=== PATIENT | female | born 1960 | race Caucasian/White ===

== ENCOUNTER 2019-05-12 06:46 | Day surgery (SDC) | payer BC ==
[2019-05-12] MEDS ORDERED: Lactated Ringers 1,000 ML IV ONE (07:16)
[2019-05-12] MEDS ORDERED: Lactated Ringers 1,000 ML IV SCH (07:30)
--- NOTE | 2019-05-12 08:13 | HP ---
DATE OF SURGERY: 05/12/2019 ANTICIPATED PROCEDURE: Colonoscopy. HISTORY OF PRESENT ILLNESS: The patient presents for five year follow up, past history of polyps. PAST MEDICAL HISTORY: ALLERGIES: NONE. MEDICATIONS: See list. PAST SURGICAL HISTORY: Hysterectomy. SOCIAL HISTORY: Negative. FAMILY HISTORY: Negative. REVIEW OF SYSTEMS: Negative. PHYSICAL EXAMINATION: VITAL SIGNS: Normal. CHEST: Clear. COR: Regular. ABDOMEN: Satisfactory. IMPRESSION: History of polyps. PLAN: Five year follow up.
[2019-05-12] MEDS ORDERED: DIPRIVAN 200 MG/20 ML IV ONE ×2 (08:17→09:08)
[2019-05-12] MEDS ORDERED: Ketamine HCl 50 MG/ML ONE (08:17)
[2019-05-12 10:06] VITALS: O2SAT 98
--- NOTE | 2019-05-12 10:16 | OP ---
SURGERY DATE/TIME: 05/12/2019 0857 PREOPERATIVE DIAGNOSIS: History of polyps. POSTOPERATIVE DIAGNOSIS: One polyp. PROCEDURES: 1) Colonoscopy complete to cecum. 2) Hot polypectomy x1 distal descending. SURGEON: Adam Escamilla M.D. ANESTHESIA: MAC. COMPLICATIONS: None. CONDITION: Stable. INDICATION: A patient requiring evaluation. DESCRIPTION OF PROCEDURE: Taken to endoscopy. MAC sedation provided. Anal digital examination. Scope introduced. Scope advanced to the cecum. Base of cecum satisfactory. Ileocecal valve satisfactory. Ascending, hepatic, transverse, splenic, descending, distal descending 6 mm polyp taken with hot biopsy forceps to extinction. [employer] sample submitted. Sigmoid, rectum, anus satisfactory. Findings one polyp. Follow up three years.
[2019-05-12 10:26] VITALS: BP 121/76; PULSE 75
== END 2019-05-12 10:41 | disposition home or self-care (01) ==
LOC: SDC 06:46
PROVIDERS: ATTEND Surgery
DX: Z12.11 Encounter for screening for malignant neoplasm of colon (principal); K63.5 Polyp of colon; Z86.010 Personal history of colon polyps
CPT/HCPCS: 88305; J2704

== ENCOUNTER 2025-08-09 14:02 | Day surgery (SDC) | payer OTHER ==
[2025-08-09] MEDS ORDERED: LIDOCAINE HCL 1% 50 MG/5 ML VL IJ ONE (14:03)
--- NOTE | 2025-08-09 20:34 | XRAY ---
Indication: Left piriformis injection. Intraoperative fluoroscopy provided for 15 seconds. Single digital spot image submitted for interpretation demonstrates posterior needle tip projecting over left piriformis. Small amount of contrast injected for needle tip placement. Correlate with intraoperative findings/report.
--- NOTE | 2025-08-09 20:36 | XRAY ---
15 seconds of fluoroscopy were used in surgery for a left piriformis muscle injection.
== END 2025-08-09 17:32 | disposition home or self-care (01) ==
LOC: SDC-PAIN 14:02
PROVIDERS: ATTEND Psychiatry & Neurology Pain Medicine
DX: M79.18 Myalgia, other site (principal)